=== PATIENT | male | born 1990 | race Asian ===

== ENCOUNTER 2020-11-17 12:36 | Emergency (ER) | payer OTHER ==
[~2020-11-17] VITALS: Ht 165.1 cm; Wt 63.5 kg
[2020-11-17 12:40] VITALS: BP 132/76
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
[2020-11-17] MEDS ORDERED: CLINDAMYCIN HC300 MG ORAL (13:52)
[2020-11-17 13:55] VITALS: BP 132/76
--- NOTE | 2020-11-17 13:55 | NUR ---
ER DISCHARGE NOTE: Patient is cleared to be discharged per ERMD and medically cleared to be booked. pt is aox4, on room air, with stable vital signs. pt and [employer] officers were given dc and prescription instructions, all parties present were able to verbalize understanding, pt id band removed without complications. pt is able to ambulate with steady gait. pt took all belongings and left in police custody
[2020-11-17] MEDS: Clindamycin 150mg cap ORAL ONE (13:59)
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
== END 2020-11-17 13:55 ==
LOC: EDBD 12:36 → EMR 13:00
DX: S61.214A Laceration without foreign body of right ring finger without damage to nail, initial encounter (principal); S60.221A Contusion of right hand, initial encounter; Y04.0XXA Assault by unarmed brawl or fight, initial encounter; Y93.9 Activity, unspecified; Y92.9 Unspecified place or not applicable
CPT/HCPCS: 99283